=== PATIENT | female | born 1940 | race Caucasian/White ===

== ENCOUNTER 2017-02-06 20:24 | Inpatient (IN) ==
[2017-02-06 21:13] LABS: URINE SOURCE VOIDED
--- NOTE | 2017-02-06 21:18 | Diag Imaging Result Doc PS360 ---
EXAM: HIP 1 VIEW RIGHT HISTORY: fall TECHNIQUE: COMPARISON: None. FINDINGS: The femoral head is not dislocated. There is shortening to the femoral neck. On this one view, I am unable to tell if this is an old healed injury or if this is an acute fracture. No other fracture. IMPRESSION: Shortening of the femoral neck may represent an acute fracture. Electronically signed by Chapin Moncada 02/06/2017 9:15 PM
[2017-02-06] MEDS ORDERED: MORPHINE IV ONE (21:21)
[2017-02-06] MEDS ORDERED: ZOFRAN IV ONE (21:21)
[2017-02-06 21:26] LABS: MANUAL DIFF NEEDED? NO
[2017-02-06 21:28] LABS: BILIRUBIN URINE NEGATIVE (NEGATIVE); BLOOD URINE TRACE (NEGATIVE); COLOR YELLOW; GLUCOSE URINE NEGATIVE (NEGATIVE); LEUKOCYTES URINE MODERATE (NEGATIVE); NITRITE URINE NEGATIVE (NEGATIVE); PROTEIN URINE TRACE mg/dL (NEGATIVE); SP GRAVITY URINE 1.007; TURBIDITY URINE HAZY (CLEAR); UROBILINOGEN URINE NORMAL (NORMAL)
[2017-02-06 21:30] LABS: URINE MICRO REVIEW NEEDED? YES
[2017-02-06 21:32] LABS: BASO% 0.2 % (0.0-0.8); EOS# 0.06 X1000 (0.0-0.7); EOS% 0.7 % (0.0-10.0); HEMATOCRIT 40.9 % (37.0-47.0); HEMOGLOBIN 13.6 g/dL (12.0-16.0); IMM GRAN# 0.06 X1000 (0.0-0.04); IMM GRAN% 0.7 % (0.0-0.5); LYMPH# 1.28 X1000 (1.2-3.4); MCHC 33.3 g/dL (33-37); MCV 90.3 FL (81-99); MONO# 0.65 X1000 (0.11-0.59); MONO% 7.1 % (1.7-9.3); MPV 11.6 FL (7.4-10.4); NEUT% 77.3 % (42.2-75.2); PLT 180 X1000 (130-400); RBC 4.53 XMIL (4.2-5.4)
[2017-02-06 21:33] LABS: UR EPITHELIAL CELLS <10 /HPF (<10); URINE BACTERIA 1+ /HPF; URINE RBC TNTC /HPF (<10); URINE WBC <10 /HPF (<10)
[2017-02-06 22:08] LABS: AGAP 11; ALKALINE PHOSPHATASE 64 U/L (32-104); BUN 17 mg/dL (8-22); CALCIUM 9.4 mg/dL (8.8-10.2); CHLORIDE 102 mmol/L (98-107); COSMO 285; GOT 22 U/L (10-30); GPT 16 U/L (10-36); POTASSIUM 3.9 mmol/L (3.5-5.1); SODIUM 141 mmol/L (136-145); TCO2 28 mmol/L (25-35); TOTAL BILIRUBIN 0.28 mg/dL (0.20-1.00); TOTAL PROTEIN 8.2 g/dL (6.3-8.3)
[2017-02-06] MEDS ORDERED: CATAPRES PO ONE (23:12)
[2017-02-06] MEDS ORDERED: CATAPRES ONE (23:16)
--- NOTE | 2017-02-07 00:11 | PROVIDER DOCUMENTATION ---
This chart was entered by Roxanna Espinoza Scribe, acting as scribe for Jaskaran Goldberg MD. HPI-Musculoskeletal Pain/Inj - GENERAL Chief Complaint: Fall Stated Complaint: fall/rt femur pain Time Seen by Provider: 02/06/17 22:59 Source: patient - HX OF PRESENT ILLNESS-MUSKULOSKELTAL Nature of Presenting Problem: 76 Y/O F presents to ED with Extremity Injury. Pt states that she fell and now has pain in her right leg. Pt has noted shorter leg on rt side, c/o of knee pain. Hx of 2 Heart Attacks and Hypertension. Daughter states pt was diagnosed with Alzheimer's. Quality of Pain: reports: aching Severity in ED: severe Onset/Duration: this evening Timing: still present Any recent injury?: No Locality of Occurance: Home Similar Symptoms Previously?: No - FALL INJURY Location of Pain/Injury: reports: pelvis Pain Radiation: reports: no radiation Reason for Fall: reports: tripped Symptoms prior to fall:: reports: none Loss of Consciousness: no loss of consciousness Injury Associated Symptoms: reports: joint pain, trouble walking - HIP/PELVIS PAIN/INJURY Hip Pain Location: reports: hip (R) Pain Radiation: reports: no radiation Context / Method of Injury: reports: fall Associated Symptoms: reports: denies symptoms Review of Systems - Adult - REVIEW OF SYSTEMS - ADULT Constitutional: denies: chills, fever Eyes: reports: no symptoms reported Ears, Nose, Mouth & Throat: reports: no symptoms reported Cardiovascular: denies: chest pain Respiratory: denies: cough, shortness of breath Gastrointestinal: reports: no symptoms reported Genitourinary: reports: no symptoms reported Musculoskeletal: reports: joint pain. denies: bone pain, back pain, neck pain Integumentary: reports: no symptoms reported Neurological: reports: no symptoms reported Psychiatric: reports: no symptoms reported Endocrine: reports: no symptoms reported Hematologic/Lymphatic: reports: no symptoms reported Allergic/Immunologic: reports: no symptoms reported All Other Systems: Reviewed and Negative Past History - Adult - PAST MEDICAL HISTORY-ADULT Review of Records: reports: Old Records Reviewed, Nursing Assessment Review, Medications Reviewed, Social history reviewed & non-contributory. Physical Exam-Injury Related - Physical Exam-Injury Related General Appearance: alert, mild distress Eyes: PERRL/EOMI, pink conjunctivae Head, Ears, Nose, Mouth & Throat: normocephalic/atraumatic, moist mucous membranes, normal ENT inspection, TMs normal, pharynx normal Respiratory: chest non-tender, lungs clear, normal breath sounds Cardiovascular: normal peripheral pulses, regular rate, rhythm Abdominal Exam: normal bowel sounds, non tender, soft Extremity: tenderness, other (noted shortening of right leg) Integumentary: normal color, warm/dry - Glascow Coma Score Best Eye Response ([place]): (4) open spontaneously Best Verbal Response ([place]): (5) oriented Best Motor Response ([place]): (6) obeys commands Nomi Total: 15 Progress - PLAN OF CARE/RESULTS Progress/Plan/Lab Results: Vital Signs - 8 hr 02/06/17 20:55 02/06/17 23:31 Pulse Rate 99 H 76 Respiratory Rate 20 20 Blood Pressure 238/145 232/112 O2 Sat by Pulse Oximetry 90 L 95 Laboratory Results - last 24 hr 02/06/17 02/06/17 02/06/17 21:01 21:15 21:15 WBC 9.14 RBC 4.53 Hgb 13.6 Hct 40.9 MCV 90.3 MCH 30.0 MCHC 33.3 RDW Std Deviation 13.1 Plt Count 180 MPV 11.6 H Immature Gran % (Auto) 0.7 H Neut % (Auto) 77.3 H Lymph % (Auto) 14.0 L [place] % (Auto) 7.1 Eos % (Auto) 0.7 Baso % (Auto) 0.2 Immature Gran # (Auto) 0.06 H Neut # (Auto) 7.07 H Lymph # (Auto) 1.28 [place] # (Auto) 0.65 H Eos # (Auto) 0.06 Baso # (Auto) 0.02 Sodium 141 Potassium 3.9 Chloride 102 Carbon Dioxide 28 Anion Gap 11 BUN 17 Creatinine 0.8 Estimated GFR/1.73 m2 > 60 BUN/Creatinine Ratio 21 Glucose 137 H Calculated Osmolality 285 Calcium 9.4 Total Bilirubin 0.28 AST 22 ALT 16 Alkaline Phosphatase 64 Total Protein 8.2 Albumin 4.0 Globulin 4.2 Albumin/Globulin Ratio 1.0 Urine Source VOIDED Urine Color YELLOW Urine Turbidity HAZY Urine pH 7.0 Ur Specific [place] 1.007 Urine Protein TRACE A Ur Glucose (Stick) NEGATIVE Ur Ketones (Stick) NEGATIVE Urine Blood TRACE A Urine Nitrite NEGATIVE Urine Bilirubin NEGATIVE Urobilinogen Dipstick NORMAL Urine Leukocytes MODERATE A Urine WBC (Auto) <10 Urine RBC (Auto) TNTC A U Epithel Cells (Auto) <10 Urine Bacteria (Auto) 1+ Urine Crystals Not Reportable Small Round Cells Not Reportable Urine Casts Not Reportable Urine Yeast-like Cells NONE SEEN Blood Type Antibody Screen 02/06/17 21:15 WBC RBC Hgb Hct MCV MCH MCHC RDW Std Deviation Plt Count MPV Immature Gran % (Auto) Neut % (Auto) Lymph % (Auto) [place] % (Auto) Eos % (Auto) Baso % (Auto) Immature Gran # (Auto) Neut # (Auto) Lymph # (Auto) [place] # (Auto) Eos # (Auto) Baso # (Auto) Sodium Potassium Chloride Carbon Dioxide Anion Gap BUN Creatinine Estimated GFR/1.73 m2 BUN/Creatinine Ratio Glucose Calculated Osmolality Calcium Total Bilirubin AST ALT Alkaline Phosphatase Total Protein Albumin Globulin Albumin/Globulin Ratio Urine Source Urine Color Urine Turbidity Urine pH Ur Specific [place] Urine Protein Ur Glucose (Stick) Ur Ketones (Stick) Urine Blood Urine Nitrite Urine Bilirubin Urobilinogen Dipstick Urine Leukocytes Urine WBC (Auto) Urine RBC (Auto) U Epithel Cells (Auto) Urine Bacteria (Auto) Urine Crystals Small Round Cells Urine Casts Urine Yeast-like Cells Blood Type O POSITIVE Antibody Screen NEGATIVE Orders Category Date Time Status HEAD/C-SPINE W/O CONTRAST [CT] Stat Exams 02/06/17 23:01 Taken HIP 1 VIEW RIGHT [RAD] Stat Exams 02/06/17 21:01 Completed PELVIS W/O CONTRAST [CT] Stat Exams 02/06/17 22:28 Taken CBC WITH ELECTRONIC DIFF [HEME] Stat Lab 02/06/17 21:15 Completed COMPREHENSIVE METABOLIC PANEL [CHEM] Stat Lab 02/06/17 21:15 Completed TYPE & SCREEN [BBK] Stat Lab 02/06/17 21:15 Completed UA [URINALYSIS] [URINALYSIS] Stat Lab 02/06/17 21:01 Completed URINE MANUAL MICROSCOPIC [URINALYSIS] Stat Lab 02/06/17 21:01 Completed Clonidine [Catapres] Med 02/06/17 23:16 Discontinued 0.2 mg .ROUTE .STK-MED ONE Clonidine [Catapres] Med 02/06/17 23:12 Discontinued 0.2 mg PO NOW ONE Clonidine [Catapres] Med 02/07/17 11:15 Discontinued 0.2 mg PO NOW ONE Morphine Med 02/06/17 21:21 Discontinued 4 mg IV NOW ONE Ondansetron [Zofran] Med 02/06/17 21:21 Discontinued 4 mg IV NOW ONE Result Diagrams: 02/06/17 21:15 02/06/17 21:15 - XRAY 1 XRAY: Right XRAY Study: Hip Impression: Abnormal XRAY Interpretation: Shortening of the femoral neck may represent an acute fx ( [place]) - CT/MRI 1 CT Study: Pelvis Impression: Abnormal CT Results: Rt femoral neck fx 2 CT Study: Cervical Spine, Head Impression: Normal CT Results: NAD - CONSULTS/PCP/HOSPITALIST Notification #1 *Consult/PCP/Hospitalist*: Time Discussed: 00:04 Reason/Comments: Admit Consult Disposition: Admit (Admit Accepted) Departure - Departure Date of Disposition Decision: 02/06/17 Time of Disposition Decision: 23:48 DIAGNOSIS: Hip fracture, right Qualifiers: Encounter type: initial encounter Fracture type: closed Qualified Code(s): S72.001A - Fracture of unspecified part of neck of right femur, initial encounter for closed fracture Disposition: ADMITTED INPATIENT 09 Certified Medical Emergency: Emergent Condition: Good Referrals and Follow-Ups: Arely Casillas [Primary Care Provider] - - Critical Care Note This patient required my direct & personal management of CC.: No This chart was documented by the indicated scribe, (Roxanna Espinoza Scribe) and accurately reflects the services I performed and decisions made by me, Jaskaran Goldberg MD, as attested by the provider's signature.
[2017-02-07] MEDS ORDERED: APRESOLINE IV PRN (00:52)
[2017-02-07] MEDS ORDERED: ZOFRAN IV PRN (01:37)
[2017-02-07] MEDS ORDERED: NITROGLYCERIN SL PRN (01:37)
[2017-02-07] MEDS ORDERED: NS 1,000 ML ONE (01:44)
[2017-02-07] MEDS: DILAUDID IV PRN ×3 (01:46→20:22)
[2017-02-07] MEDS: NS 1,000 ML IV SCH ×2 (02:09→15:11)
[2017-02-07 02:39] LABS: URINE CULTURE NEEDED? NO; URINE MICRO REVIEW NEEDED? NO; URINE SOURCE CATH
[2017-02-07 02:44] LABS: BILIRUBIN URINE NEGATIVE (NEGATIVE); BLOOD URINE TRACE (NEGATIVE); COLOR YELLOW; GLUCOSE URINE NEGATIVE (NEGATIVE); LEUKOCYTES URINE NEGATIVE (NEGATIVE); NITRITE URINE NEGATIVE (NEGATIVE); PH URINE 6.5; PROTEIN URINE TRACE mg/dL (NEGATIVE); TURBIDITY URINE CLEAR (CLEAR); UR EPITHELIAL CELLS <10 /HPF (<10); URINE BACTERIA NEGATIVE /HPF; URINE RBC <10 /HPF (<10); URINE WBC <10 /HPF (<10); UROBILINOGEN URINE NORMAL (NORMAL)
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
[2017-02-07] MEDS: LABETALOL IV PRN ×2 (05:09→23:33)
--- NOTE | 2017-02-07 07:37 | Diag Imaging Result Doc PS360 ---
EXAM: HEAD/C-SPINE W/O CONTRAST HISTORY: fall TECHNIQUE: COMPARISON: None. FINDINGS: Head: No parenchymal hemorrhage. No epidural or subdural hematoma. No subarachnoid hemorrhage. No skull fracture. There are chronic microvascular ischemic changes in addition to atrophy. No sinus opacification. Cervical spine: There is degenerative bone spurring throughout the cervical spine. Good alignment. No precervical soft tissue swelling. No subluxation. No fracture. IMPRESSION: No injury to the head or cervical spine. A preliminary report was given at 11:23 PM Electronically signed by Chapin Moncada 02/07/2017 7:35 AM
--- NOTE | 2017-02-07 07:47 | Diag Imaging Result Doc PS360 ---
EXAM: PELVIS W/O CONTRAST - 02/06/2017 HISTORY: Rt hip fx TECHNIQUE: Axial, coronal, and sagittal images. Dose reduction protocol. COMPARISON: None. FINDINGS: There is a fracture of the right femoral neck with anterior displacement of the distal fragment and mild impaction. There are small comminuted fragments present. There is no other fracture or dislocation identified. There are atherosclerotic calcifications noted. IMPRESSION: Fracture of right femoral neck. The ultrasonic welding machine operator radiologist provided primary results at 11:27 PM on 02/06/2017. Electronically signed by Gonzalo Gay 02/07/2017 7:45 AM
[2017-02-07] MEDS: NORCO-10 PO PRN ×2 (07:52→16:08)
[2017-02-07] MEDS: PRILOSEC PO SCH (07:52)
[2017-02-07] MEDS: ARICEPT PO SCH (09:01)
[2017-02-07] MEDS: COREG PO SCH ×2 (09:01→20:23)
[2017-02-07] MEDS: VITAMIN B-12 PO SCH (09:01)
[2017-02-07] MEDS: VITAMIN D PO SCH (09:01)
[2017-02-07] MEDS: COZAAR PO SCH (09:01)
--- NOTE | 2017-02-07 09:37 | CONSULTATION ---
DATE OF CONSULTATION: 02/07/2017 FAMILY PHYSICIAN: Arely Casillas MD CHIEF COMPLAINT: Right hip pain. HISTORY OF PRESENT ILLNESS: Ms. Caceres is a 76-year-old white female, who was brought to the emergency department today because she apparently tripped at her home and she landed on her right hip. She was unable to bear weight after that injury. Radiographic findings in the emergency room revealed a right intertrochanteric hip fracture. She denies any loss of consciousness and we were consulted for further evaluation. PAST MEDICAL HISTORY: 1. Hypertension. 2. Coronary artery disease with a stent placed. 3. Patient said she had a fracture in her right leg many years ago, but she was not able to remember what the surgery was for. 4. History of blood clots. ALLERGIES: No known drug allergies. SOCIAL HISTORY: Patient lives with her and daughter. She denies drinking alcohol, smoking tobacco, or using illicit drugs. Before the injury she was ambulating well at home independently. REVIEW OF SYSTEMS: Ten point review of systems was performed and was negative, other than what was stated in HPI above. PHYSICAL EXAMINATION: General Appearance: This is a chronically ill-looking and frail 76-year- old white female, who is lying in bed. She is a poor historian and unable to fully articulate answers. HEENT: Head is normocephalic and atraumatic. Neck: Supple. Cardiovascular: S1, S2 heard. Regular rate and rhythm. Respiratory: Clear to auscultation bilaterally. Abdomen: Soft, nontender to palpation. Bowel sounds are present. Extremities: There is shortening of her right lower extremity. It appears to be externally rotated. Neurovascular status is intact with good peripheral pulses. There is no gross edema or ecchymosis noted. Other: She has a Weems placed. IMPRESSION: Right impacted femoral neck fracture. PLAN: Closed reduction, percutaneous pinning of right femoral neck fracture. The risks and benefits of surgery were explained to the patient including risk of anesthesia, , bleeding, infection, damage to tendons, ligaments, nerves, blood vessel, possibility of bleeding, blood clots, and other imponderables were discussed with the patient and she wishes to proceed with operative management at this time. Dictated by ANTONIETA Armenta for Jason Nova MD cc: ANTONIETA Armenta MD [facility]
[2017-02-07] MEDS ORDERED: CATAPRES PO ONE (11:15)
--- NOTE | 2017-02-07 14:24 | PROGRESS NOTE ---
DATE: 02/07/2017 SUBJECTIVE: The patient was seen and examined. Admitted for right hip fracture. The patient complained of having pain. OBJECTIVE: Vital Signs: Blood pressure 150/53, pulse of 80, respiration 18, temperature 97.8 degrees, saturation of 98% on 2 L of nasal cannula. General appearance: Well- nourished, well- nourished white female in [id number] distress due to pain. HEENT: Anicteric. Clear conjunctivae. Neck supple. No JVD. No bruit. Cardiovascular: S1, S2. Normal rate and rhythm. No murmur, rubs, rubs, or gallops. Pulmonary: Clear to auscultation bilaterally. GI: Soft, nontender, nondistended. Normoactive bowel sounds. Musculoskeletal: The patient has right hip pain. No clubbing, cyanosis, or edema. LABORATORY: White count 9.14, hemoglobin 13.6, hematocrit 180. Chemistry: Sodium 141, potassium 3.9, chloride 102, bicarb 28. BUN 17, creatinine 0.8, glucose of 137. ASSESSMENT AND PLAN: This is a 76-year-old who sustained a mechanical fall fracturing her right hip. 1. Right hip fracture. Orthopedics was consulted. Dr. Nova was consulted and will plan to do surgery later today or tomorrow. We will continue pain control and supportive care. Start anticoagulation once cleared by orthopedics. 2. Hypertension. We will continue Cozaar for now. We will add hydralazine p.r.n. for blood pressure while she is having pain off and on. We will readjust it as needed. On Coreg. 3. Gastroesophageal reflux disease. We will continue proton pump inhibitor. 4. Deep venous thrombosis prophylaxis. We will wait for surgery to complete. [facility]
[2017-02-07] MEDS: CATAPRES PO SCH (20:22)
[2017-02-08] MEDS: NS 1,000 ML IV SCH ×3 (01:59→16:13)
[2017-02-08] MEDS: DILAUDID IV PRN ×2 (04:10→08:51)
[2017-02-08 05:41] LABS: MANUAL DIFF NEEDED? NO
[2017-02-08 05:50] LABS: BASO% 0.2 % (0.0-0.8); EOS# 0.26 X1000 (0.0-0.7); EOS% 2.8 % (0.0-10.0); HEMATOCRIT 37.8 % (37.0-47.0); HEMOGLOBIN 12.4 g/dL (12.0-16.0); IMM GRAN# 0.02 X1000 (0.0-0.04); IMM GRAN% 0.2 % (0.0-0.5); LYMPH# 1.59 X1000 (1.2-3.4); LYMPH% 17.2 % (20.5-51.1); MCH 30.2 PG (27-31); MCHC 32.8 g/dL (33-37); MCV 92.2 FL (81-99); MONO# 1.01 X1000 (0.11-0.59); MONO% 10.9 % (1.7-9.3); MPV 12.1 FL (7.4-10.4); NEUT% 68.7 % (42.2-75.2); PLT 142 X1000 (130-400)
[2017-02-08 06:13] LABS: AGAP 9; BUN 13 mg/dL (8-22); CALCIUM 8.6 mg/dL (8.8-10.2); CHLORIDE 103 mmol/L (98-107); COSMO 282; POTASSIUM 3.9 mmol/L (3.5-5.1); SODIUM 141 mmol/L (136-145); TCO2 29 mmol/L (25-35)
[2017-02-08] MEDS: PRILOSEC PO SCH (07:54)
[2017-02-08] MEDS: VITAMIN D PO SCH (08:52)
[2017-02-08] MEDS: COREG PO SCH ×2 (08:52→20:46)
[2017-02-08] MEDS: COZAAR PO SCH (08:52)
[2017-02-08] MEDS: VITAMIN B-12 PO SCH (08:52)
[2017-02-08] MEDS: ARICEPT PO SCH (08:53)
[2017-02-08] MEDS ORDERED: KEFZOL 1 GM/D5W 1 GM/50 ML IVPB ONE (11:42)
--- NOTE | 2017-02-08 12:00 | PROGRESS NOTE ---
DATE: 02/08/2017 SUBJECTIVE: The patient is still having pain and has required pain medication overnight. No fever, no chills. OBJECTIVE: Vital signs: Blood pressure is 182/83, pulse of 72, respirations 20, temperature 97.7 degrees, saturation of 98% on room air. General Appearance: White female in moderate distress due to pain. HEENT: Anicteric. Clear conjunctivae. Neck: Supple. No JVD. No bruit. Cardiovascular: S1, S2. Normal rate and rhythm. No murmur, rubs, or gallops. Pulmonary: Clear to auscultation bilaterally. GI: Soft, nontender, nondistended. Normoactive bowel sounds. Musculoskeletal: No clubbing, cyanosis, or edema. LABORATORY: White count 9.25, hemoglobin 12.4, hematocrit of 37.8, platelets of 142,000. Chemistry: Sodium is 141, potassium 3.9, chloride 103, bicarbonate 29, BUN 13, creatinine 0.7, glucose 112. ASSESSMENT/PLAN: This is a 76-year-old who sustained a mechanical fall at home fracturing her right hip. 1. Right hip fracture. Orthopedics is planning to do surgery today. We will continue with conservative management get her pain under control. 2. Hypertension. We will continue Coreg, p.r.n. hydralazine and losartan. 3. Gastroesophageal reflux disease. Continue Prilosec. 4. Dementia. Continue Aricept. CODE STATUS: Patient is a full code. Her is her surrogate decision maker.
--- NOTE | 2017-02-08 13:01 | OPERATIVE NOTE ---
PROCEDURE DATE: 02/08/2017 PREOPERATIVE DIAGNOSIS: Impacted right femoral neck fracture. POSTOPERATIVE DIAGNOSIS: Impacted right femoral neck fracture. PROCEDURE: Closed reduction, percutaneous pinning, right femoral neck fracture. SURGEON: Joana Nova MD. BALL FRINGE MACHINE OPERATOR: Rachna Angel. ANESTHESIA: General. COMPLICATION: None. PROCEDURE IN DETAIL: This is a 76-year-old female with impacted right femoral neck fracture presents for surgical fixation. Risks, benefits, and no guarantees were discussed, and she is willing to proceed. She was taken to the operating room and satisfactory anesthesia obtained. The right hip was prepped and draped and placed in the fracture table. Gentle traction and internal rotation were utilized to reduce the hip near anatomically. A time-out was taken to confirm operative site, procedure, and patient. Through a 1 inch incision along the lateral aspect of the hip at the level of lesser trochanter, three guide pins were placed in a triangular fashion across the fracture and into the central aspect of the femoral head. Care was taken to avoid any articular penetration. These were then replaced with three 90 length partially threaded cannulated screws with secure fixation. The guidewires were removed. The C-arm was used to verify accurate fracture reduction and hardware placement. Good stability of the fracture was noted under real-time fluoro. The wound was irrigated and closed in layers with 2-0 Vicryl, and skin zahira. Sterile dressings completed the closure. The patient was recovered from anesthesia and transferred to the recovery room in stable condition. No intraoperative complications were noted. Instrument count and sponge count was correct at time of closure. cc: Jason Nova MD
[2017-02-08] MEDS ORDERED: MORPHINE ONE ×2 (13:09→13:23)
[2017-02-08] MEDS ORDERED: OXY IR PO PRN (13:12)
[2017-02-08] MEDS ORDERED: HALDOL IV PRN (13:12)
[2017-02-08] MEDS ORDERED: ZOFRAN IV PRN (13:12)
[2017-02-08] MEDS ORDERED: MORPHINE IV PRN (13:12)
[2017-02-08] MEDS ORDERED: MILK OF MAGNESIA PO PRN (13:12)
[2017-02-08] MEDS ORDERED: APRESOLINE ONE (13:25)
[2017-02-08] MEDS ORDERED: OFIRMEV 1000 MG/ISOTONIC SOLN 1,000 MG/100 ML BOTTLE ONE (13:47)
[2017-02-08] MEDS: TYLENOL PO SCH (16:14)
[2017-02-08] MEDS ORDERED: XYLOCAINE-MPF 2% ONE (16:47)
[2017-02-08] MEDS: CATAPRES PO SCH (20:46)
[2017-02-08] MEDS: KEFZOL 1 GM/D5W 1 GM/50 ML IVPB IV SCH (20:46)
[2017-02-08] MEDS: PERIDEX MT SCH (20:46)
[2017-02-08] MEDS: COLACE PO SCH (20:46)
[2017-02-09] MEDS: TYLENOL PO SCH ×4 (00:53→23:39)
[2017-02-09] MEDS: NS 1,000 ML IV SCH ×3 (03:50→16:55)
[2017-02-09] MEDS: KEFZOL 1 GM/D5W 1 GM/50 ML IVPB IV SCH ×3 (03:51→20:26)
[2017-02-09] MEDS: PRILOSEC PO SCH (05:59)
[2017-02-09 06:33] LABS: MANUAL DIFF NEEDED? NO
[2017-02-09 06:38] LABS: BASO% 0.3 % (0.0-0.8); EOS# 0.32 X1000 (0.0-0.7); EOS% 3.4 % (0.0-10.0); HEMATOCRIT 36.9 % (37.0-47.0); HEMOGLOBIN 11.9 g/dL (12.0-16.0); LYMPH# 1.25 X1000 (1.2-3.4); LYMPH% 13.3 % (20.5-51.1); MCH 29.5 PG (27-31); MCHC 32.2 g/dL (33-37); MCV 91.6 FL (81-99); MONO# 1.11 X1000 (0.11-0.59); MONO% 11.8 % (1.7-9.3); MPV 12.4 FL (7.4-10.4); NEUT% 71.2 % (42.2-75.2); PLT 131 X1000 (130-400); RBC 4.03 XMIL (4.2-5.4)
[2017-02-09 07:05] LABS: AGAP 10; BUN 12 mg/dL (8-22); CALCIUM 8.4 mg/dL (8.8-10.2); CHLORIDE 103 mmol/L (98-107); COSMO 280; POTASSIUM 3.6 mmol/L (3.5-5.1); SODIUM 140 mmol/L (136-145); TCO2 27 mmol/L (25-35)
--- NOTE | 2017-02-09 10:10 | PROGRESS NOTE ---
DATE: 02/09/2017 SUBJECTIVE: Ms. Caceres is lying in bed this morning. Complained of some right hip pain. OBJECTIVE: Right lower extremity exam: Dressing is clean, dry, and intact. She is able to dorsiflex and plantar flex her toes well. She has good sensation to light touch to the toes. ASSESSMENT: Status post right closed reduction, percutaneous pinning, femoral neck fracture. PLAN: Ms. Caceres is going to be partial weightbearing right lower extremity. She is going to start working with physical therapy, getting up out of bed. We will continue to follow her. She more than likely will need to go to rehab upon discharge from the hospital. cc: Leno Herzog MD
[2017-02-09] MEDS: VITAMIN B-12 PO SCH (11:56)
[2017-02-09] MEDS: VITAMIN D PO SCH (11:56)
[2017-02-09] MEDS: COREG PO SCH ×2 (11:56→20:25)
[2017-02-09] MEDS: COZAAR PO SCH (11:56)
[2017-02-09] MEDS: ARICEPT PO SCH (11:56)
[2017-02-09] MEDS: PERIDEX MT SCH ×2 (11:57→20:25)
[2017-02-09] MEDS ORDERED: NORVASC PO ONE (12:15)
[2017-02-09] MEDS: FERROUS SULFATE PO SCH (13:34)
--- NOTE | 2017-02-09 13:59 | PROGRESS NOTE ---
DATE: 02/09/2017 SUBJECTIVE: The patient is doing well. No fever. No chills. No nausea, vomiting, or diarrhea. She had her right hip repaired yesterday. OBJECTIVE: Vital Signs: Blood pressure 180/79, pulse of 56, respiration 18, temperature 98.4 degrees, saturation of 95% on 2 L nasal cannula. General Appearance: Well-developed, well- nourished, white female in no acute distress. HEENT: Anicteric sclerae. Clear conjunctivae. Neck supple. No JVD. No bruit. Cardiovascular: S1, S2. Normal rate and rhythm. No murmur, rubs, or gallops. Pulmonary: Clear to auscultation bilaterally. GI: Soft, nontender, nondistended. Normoactive bowel sounds. Musculoskeletal: No clubbing, cyanosis, or edema. Right hip pain. Dressing in place. Clean dry and intact. LABORATORY: White count of 9. 1, hemoglobin 11.9, hematocrit 36.9, platelets of 131,000. Chemistry: Sodium 140, potassium 3.6, chloride 103, bicarb 27. BUN 12, creatinine 0.5, glucose 112. ASSESSMENT AND PLAN: This is a 76-year-old white female admitted to the hospital for right hip fracture due to a mechanical fall. 1. Right hip fracture status post open reduction internal fixation on 02/08/2017. The patient tolerated the procedure well. Her pain is adequately controlled. 2. Hypertension. Blood pressure elevated. We will keep the Clonidine as is and we will add Norvasc and keep the patient on Cozaar to get her blood pressure under control. Her heart rate is too slow for any additional beta pete or Clonidine. 3. Dementia. Will continue Aricept. 4. We will decrease the IV fluids now that the patient is able to eat. 5. We will continue physical therapy. Sanitation Director was consulted for rehab
[2017-02-09] MEDS: CATAPRES PO SCH (20:25)
[2017-02-09] MEDS: COLACE PO SCH (20:25)
[2017-02-10] MEDS: KEFZOL 1 GM/D5W 1 GM/50 ML IVPB IV SCH ×2 (03:44→13:52)
[2017-02-10] MEDS: NS 1,000 ML IV SCH ×3 (03:44→16:33)
[2017-02-10 06:10] LABS: MANUAL DIFF NEEDED? NO
[2017-02-10] MEDS: PRILOSEC PO SCH (06:21)
[2017-02-10 06:25] LABS: BASO% 0.3 % (0.0-0.8); EOS# 0.27 X1000 (0.0-0.7); EOS% 2.7 % (0.0-10.0); HEMATOCRIT 36.4 % (37.0-47.0); HEMOGLOBIN 12.1 g/dL (12.0-16.0); IMM GRAN# 0.03 X1000 (0.0-0.04); IMM GRAN% 0.3 % (0.0-0.5); LYMPH# 1.78 X1000 (1.2-3.4); LYMPH% 17.8 % (20.5-51.1); MCH 29.8 PG (27-31); MCHC 33.2 g/dL (33-37); MCV 89.7 FL (81-99); MONO# 1.28 X1000 (0.11-0.59); MONO% 12.8 % (1.7-9.3); MPV 12.1 FL (7.4-10.4); NEUT% 66.1 % (42.2-75.2); PLT 143 X1000 (130-400); RBC 4.06 XMIL (4.2-5.4)
[2017-02-10] MEDS: LOVENOX SUBQ SCH (06:51)
[2017-02-10 07:12] LABS: AGAP 11; BUN 12 mg/dL (8-22); CALCIUM 8.4 mg/dL (8.8-10.2); CHLORIDE 104 mmol/L (98-107); COSMO 282; POTASSIUM 3.2 mmol/L (3.5-5.1); SODIUM 141 mmol/L (136-145); TCO2 26 mmol/L (25-35)
[2017-02-10] MEDS: PERIDEX MT SCH (08:39)
[2017-02-10] MEDS: VITAMIN B-12 PO SCH (08:39)
[2017-02-10] MEDS: CATAPRES PO SCH ×3 (08:40→18:41)
[2017-02-10] MEDS: COZAAR PO SCH (08:40)
[2017-02-10] MEDS: NORVASC PO SCH (08:40)
[2017-02-10] MEDS: TYLENOL PO SCH ×3 (08:40→18:42)
[2017-02-10] MEDS: COREG PO SCH ×2 (08:41→21:36)
[2017-02-10] MEDS: FERROUS SULFATE PO SCH (08:41)
[2017-02-10] MEDS: ARICEPT PO SCH (08:41)
[2017-02-10] MEDS: VITAMIN D PO SCH (08:41)
[2017-02-10] MEDS ORDERED: KLOR-CON PO ONE (09:24)
--- NOTE | 2017-02-10 10:37 | PROGRESS NOTE ---
DATE: 02/10/2017 SUBJECTIVE: The patient is feeling well. Sitting up in the chair eating her breakfast. No fever. No chills. No nausea, vomiting, or diarrhea. No cough. No acute event reported by the overnight staff. OBJECTIVE: Vital Signs: Blood pressure this morning . The patient was treated with p.r.n. medications. Heart rate 88, temperature 98.3, saturation of 92% on room air. General Appearance: Well-developed, well-nourished, white female in no acute distress. Moderately demented. HEENT: ENT anicteric. Clear conjunctivae. Poor dentition. Neck: Supple. No JVD. No bruit. Cardiovascular: S1, S2. Normal rate and rhythm. No murmur, rubs, or gallops. Pulmonary: Clear to auscultation bilaterally. GI: Soft, nontender, nondistended. Normoactive bowel sounds. Musculoskeletal: No clubbing, cyanosis, or edema. LABORATORY: White count 9.98, hemoglobin 12.2, hematocrit of 36.4, platelets of 143,000. Chemistry: Sodium 141, potassium 3.2, chloride 104, bicarb 26, BUN 12, creatinine 0.5, glucose 110. ASSESSMENT AND PLAN: This 76-year-old sustained a mechanical fall, fracturing her right hip. 1. Right hip fracture status post open reduction internal fixation on January. The patient tolerated the procedure well. Has been working with physical therapy. utility worker roller shop was consult for rehab. 2. Hypertension, uncontrolled. I have changed her Catapres to 3 times a day instead of at bedtime. I also increased her Norvasc to 10 mg. Will increase her Coreg to 6.25 b.i.d. The patient has hydralazine p.r.n. as well as on labetalol p.r.n. She is also on losartan. Will get her pain under control. 3. Hypokalemia. Will give her 60 mEq of KCl. 4. Dementia. Continue Aricept. 5. Deep vein thrombosis. The patient is on Lovenox. 6. Code status. The patient is a full code.
[2017-02-10] MEDS: COLACE PO SCH (21:36)
[2017-02-11] MEDS: TYLENOL PO SCH ×2 (05:31→09:28)
[2017-02-11] MEDS: PERIDEX MT SCH ×3 (05:35→20:43)
[2017-02-11] MEDS: PRILOSEC PO SCH ×2 (05:35→06:34)
[2017-02-11] MEDS: LOVENOX SUBQ SCH ×2 (05:37→06:33)
[2017-02-11] MEDS: NS 1,000 ML IV SCH ×2 (05:37→18:50)
[2017-02-11] MEDS: CATAPRES PO SCH ×2 (09:28→12:34)
[2017-02-11] MEDS: VITAMIN B-12 PO SCH (09:28)
[2017-02-11] MEDS: VITAMIN D PO SCH (09:29)
[2017-02-11] MEDS: COZAAR PO SCH (09:29)
[2017-02-11] MEDS: NORVASC PO SCH ×2 (09:29→20:43)
[2017-02-11] MEDS: FERROUS SULFATE PO SCH (09:29)
[2017-02-11] MEDS: COREG PO SCH ×2 (09:29→20:43)
[2017-02-11] MEDS: ARICEPT PO SCH (09:29)
[2017-02-11] MEDS ORDERED: KLOR-CON PO ONE (09:54)
--- NOTE | 2017-02-11 11:08 | PROGRESS NOTE ---
DATE: 02/11/2017 SUBJECTIVE: Patient reports feeling fine. Denies any pain. No fever or chills. OBJECTIVE: Vital Signs: Temperature 97.6 degrees, heart rate 82, respiratory rate 16, blood pressure 198/66, O2 saturation 97% on room air. General: This is a chronically ill-looking and frail 76-year-old female lying in bed, in no acute distress. HEENT: Head is normocephalic, atraumatic. Anicteric sclerae and pale conjunctivae. Mucous membranes moist. Neck: Supple. No JVD noted. No carotid bruits. No lymphadenopathy. No thyromegaly. Cardiovascular: S1, S2 heard. No murmurs, gallops, or rubs. Regular rate and rhythm. Respiratory: Clear bilaterally to auscultation. No work of breathing or using accessory muscles. Abdomen: Soft, nontender to palpation. Bowel sounds present. No organomegaly. Extremities: No clubbing, cyanosis, or edema. Peripheral pulses present in both legs. Neurological: Patient alert and oriented x3. Moves 4 extremities. LABORATORY DATA: White cell count 9.98, hemoglobin 12.1, hematocrit 36.4, platelets 143,000. BMP unremarkable except potassium 3.2. ASSESSMENT AND PLAN: 1. Right hip fracture status post open reduction and internal fixation. Patient is being following by who has recommended partial weightbearing. 2. Hypertension. Blood pressure is under control. Patient has received clonidine 3 times per day. Blood pressure is still high so we are going to add hydralazine 50 mg p.o. 3 times per day and will see how she does. 3. Hypokalemia will receive 40 mg of potassium. 4. Dementia. We will continue with Aricept. Patient is stable. 5. Deep venous thrombosis prophylaxis. Patient on Lovenox. 6. Code status. Full code. cc: Robb Melgoza MD
[2017-02-11] MEDS: COLACE PO SCH (20:43)
[2017-02-11] MEDS: NORCO-10 PO PRN (20:45)
[2017-02-11] MEDS: APRESOLINE PO SCH (20:49)
[2017-02-12] MEDS: TYLENOL PO SCH ×3 (00:01→15:50)
[2017-02-12] MEDS: NS 1,000 ML IV SCH ×4 (05:23→17:39)
[2017-02-12] MEDS: APRESOLINE PO SCH ×3 (05:55→21:36)
[2017-02-12] MEDS: PRILOSEC PO SCH ×2 (05:55→21:41)
[2017-02-12] MEDS: LOVENOX SUBQ SCH (05:55)
[2017-02-12] MEDS: ARICEPT PO SCH (08:22)
[2017-02-12] MEDS: PERIDEX MT SCH ×2 (08:22→21:36)
[2017-02-12] MEDS: COREG PO SCH ×2 (08:22→21:36)
[2017-02-12] MEDS: VITAMIN B-12 PO SCH (08:22)
[2017-02-12] MEDS: COZAAR PO SCH (08:22)
[2017-02-12] MEDS: CATAPRES PO SCH ×4 (08:22→17:21)
[2017-02-12] MEDS: FERROUS SULFATE PO SCH (08:22)
[2017-02-12] MEDS: NORVASC PO SCH ×2 (08:22→21:36)
[2017-02-12] MEDS: VITAMIN D PO SCH (08:22)
--- NOTE | 2017-02-12 12:20 | PROGRESS NOTE ---
DATE: 02/12/2017 SUBJECTIVE: Patient reports feeling fine, no pain. No fever or chills. No headaches. OBJECTIVE: Vital Signs: Temperature 98.1 degrees, heart rate 68, respiratory rate 14, blood pressure 189/59. O2 saturation 96% on 2 L nasal cannula. General: Chronically ill-looking, frail, 76-year-old female lying in bed, in no acute distress. HEENT: Normocephalic, atraumatic. Anicteric sclerae and pale conjunctivae. Mucous membranes moist. Neck: Supple. No JVD noted. No carotid bruits. No lymphadenopathy. No thyromegaly. Cardiovascular: S1, S2 heard. No murmurs, gallops, or rubs. Regular rate and rhythm. Respiratory: Clear bilaterally to auscultation. No work of breathing or using accessory muscles. Abdomen: Soft, nontender to palpation. Bowel sounds present. No organomegaly. Extremities: No clubbing, cyanosis, or edema. Peripheral pulses present in both legs. Neurological: Patient is alert and oriented x3. Able to move 4 extremities. LABORATORY DATA: Reviewed. ASSESSMENT AND PLAN: 1. Right hip fracture status post open reduction and internal fixation. Patient being followed by orthopedic surgeon. They have recommended partial weightbearing. We will sent to rehab facility when Orthopedics has cleared up this patient. 2. Hypertension. Blood pressure is still high, so we are going to increase the dose of clonidine, and we will go from there. 3. Hypokalemia. There are no labs from today. We are going to check it now and see if the potassium is normal or still low. 4. Dementia. We will continue with Aricept. Patient is definitely stable. 5. Deep vein thrombosis prophylaxis, on Lovenox. 6. Code status. Full code. cc: Robb Melgoza MD
--- NOTE | 2017-02-12 15:16 | PROGRESS NOTE ---
DATE: 02/12/2017 Ms. Caceres seen for postop care status post hip pinning. At the present time her incision is clean and dry. There is no active bleeding. There is no signs of complication. I stressed the importance of touchdown weightbearing. She can progress to rehab when stable. Will see her back in roughly a month's time for follow up x-rays. cc: Jason Nova MD
[2017-02-12] MEDS: COLACE PO SCH (21:36)
[2017-02-13] MEDS: TYLENOL PO SCH ×3 (00:22→17:27)
[2017-02-13 05:29] LABS: MANUAL DIFF NEEDED? NO
[2017-02-13] MEDS: PRILOSEC PO SCH ×2 (05:35→07:48)
[2017-02-13 05:36] LABS: BASO% 0.6 % (0.0-0.8); EOS# 0.28 X1000 (0.0-0.7); EOS% 2.9 % (0.0-10.0); HEMATOCRIT 36.3 % (37.0-47.0); HEMOGLOBIN 12.1 g/dL (12.0-16.0); IMM GRAN# 0.05 X1000 (0.0-0.04); IMM GRAN% 0.5 % (0.0-0.5); LYMPH# 1.91 X1000 (1.2-3.4); LYMPH% 19.6 % (20.5-51.1); MCH 29.8 PG (27-31); MCHC 33.3 g/dL (33-37); MCV 89.4 FL (81-99); MONO# 1.28 X1000 (0.11-0.59); MONO% 13.1 % (1.7-9.3); MPV 11.4 FL (7.4-10.4); NEUT% 63.3 % (42.2-75.2); PLT 200 X1000 (130-400); RBC 4.06 XMIL (4.2-5.4)
[2017-02-13] MEDS: APRESOLINE PO SCH ×2 (05:36→15:06)
[2017-02-13] MEDS: LOVENOX SUBQ SCH ×2 (05:36→07:48)
[2017-02-13 05:56] LABS: AGAP 12; BUN 19 mg/dL (8-22); CALCIUM 9.1 mg/dL (8.8-10.2); CHLORIDE 105 mmol/L (98-107); COSMO 286; POTASSIUM 3.6 mmol/L (3.5-5.1); SODIUM 142 mmol/L (136-145); TCO2 25 mmol/L (25-35)
[2017-02-13] MEDS: NS 1,000 ML IV SCH (07:43)
[2017-02-13] MEDS: ARICEPT PO SCH (08:35)
[2017-02-13] MEDS: VITAMIN B-12 PO SCH (08:35)
[2017-02-13] MEDS: FERROUS SULFATE PO SCH (08:36)
[2017-02-13] MEDS: NORVASC PO SCH (08:36)
[2017-02-13] MEDS: CATAPRES PO SCH ×2 (08:36→15:06)
[2017-02-13] MEDS: PERIDEX MT SCH (08:36)
[2017-02-13] MEDS: COREG PO SCH (08:36)
[2017-02-13] MEDS: COZAAR PO SCH (08:36)
[2017-02-13] MEDS: VITAMIN D PO SCH (08:36)
--- NOTE | 2017-02-13 11:46 | DISCHARGE SUMMARY ---
ADMISSION DATE: 02/07/2017 DISCHARGE DATE: 02/13/2017 DISCHARGE DIAGNOSES: 1. Right hip fracture, status post open reduction and internal fixation. 2. Uncontrolled hypertension, much better now. 3. Hyperkalemia, resolved. 4. Dementia under treatment. PROCEDURES: 1. Pelvis CT showed some fracture of the right femoral neck. 2. Head and cervical spine CT showed no injury to the head or cervical spine. CONSULTATIONS: Dr. Nova from orthopedics. He perform a closed reduction, percutaneous pinning of the right femoral neck fracture. HOSPITAL COURSE: This is a 76-year-old female with past medical history of hypertension, coronary artery disease, who was brought to the emergency department because apparently she tripped over at home, landed on her right hip, and upon ER evaluation by CT of the pelvis we confirmed right femoral fracture, so we consulted orthopedics, Dr. Nova, who performed procedures as above mentioned. After that, patient was doing fine. Initially she was recommended nonbearing on that extremity. After a few days, the patient will start working with physical therapy. Patient was doing fine. It is also important to remark that the blood pressure was difficult to control. We had to have some modifications to his current therapy. By now, the medication that is usually used to control blood pressure is working fine. Regarding coronary artery disease, she never complained of any chest pain. At this point, patient is going to be discharged to rehab facility in stable condition. DISCHARGE PHYSICAL EXAMINATION: Vitals: Temperature 98.4 degrees, heart rate 90, respiratory rate 14, blood pressure 140/60, O2 saturation 94% on 2 L nasal cannula. General: This is a chronically ill-looking and frail, 76-year-old female, lying in bed in no acute distress. HEENT: Head is normocephalic, atraumatic. Anicteric sclerae and pale conjunctivae. Mucous membranes are moist. Neck: Supple. No JVD noted. No carotid bruits. No lymphadenopathy. No thyromegaly. Cardiovascular exam: S1, S2 heard. No murmurs, gallops or rubs. Regular rate and rhythm. Respiratory exam: Clear bilaterally to auscultation. No work of breathing or using accessory muscles. Abdomen: Soft, nontender to palpation. Bowel sounds present. No organomegaly. Extremities: No clubbing or cyanosis noted. Peripheral pulses present in both legs. Neurological exam: Patient is hard of hearing. Awake, moves 4 extremities. DISCHARGE DISPOSITION: The patient is going to rehab facility. LIST OF MEDICATIONS: 1. Coreg 12.5 mg 1 tablet p.o. b.i.d. 2. Colace 200 mg p.o. daily at bedtime. 3. Hydralazine 50 mg 1 tablet p.o. 2 times per day. 4. Oxycodone IR 5 mg 1 tablet p.o. every 3 hours as needed for pain. 5. Amlodipine 5 mg 1 tablet p.o. b.i.d. 6. Clonidine 0.2 mg p.o. 3 times per day. 7. Omeprazole 20 mg 1 tablet p.o. daily. 8. Vitamin D 1000 units 1 tablet p.o. daily. 9. Donepezil 10 mg 1 tablet p.o. daily. 10. Nitroglycerin 0.4 mg sublingual as needed for chest pain. 11. Vitamin B 12 1000 mcg oral daily. 12. Losartan 100 mg 1 tablet p.o. daily. 13. Aspirin 81 mg 1 tablet p.o. daily. FOLLOWUP: Follow up with Dr. Nova in 4 weeks. cc: Robb Melgoza MD
--- NOTE | 2017-02-13 13:01 | Diag Imaging Result Doc PS360 ---
EXAM: CHEST-PORTABLE INDICATION: rehab placement TECHNIQUE: One view COMPARISON: None. FINDINGS: The lungs are grossly clear. There is no discrete pleural fluid collection or pneumothorax. The cardiomediastinal silhouette and central vasculature are grossly unremarkable. IMPRESSION: No evidence of acute pathology by plain radiograph. Electronically signed by Jason Carlson 02/13/2017 12:59 PM
[2017-02-13 15:05] VITALS: BP 165/51
== END 2017-02-13 18:16 ==
LOC: ED 20:24 → SUATTDRO 02-07 00:48 → 4N 02-07 00:48
PROVIDERS: ATTEND Internal Medicine

== ENCOUNTER 2017-03-19 06:41 | Inpatient (IN) ==
[2017-03-19] MEDS ORDERED: NITROGLYCERIN SL PRN (07:21)
[2017-03-19] MEDS ORDERED: TYLENOL LIQUID PO PRN (07:21)
[2017-03-19] MEDS ORDERED: MORPHINE IV PRN (07:22)
[2017-03-19] MEDS ORDERED: MILK OF MAGNESIA PO SCH (07:30)
[2017-03-19 07:38] LABS: HEMATOCRIT 36.9 % (37.0-47.0); HEMOGLOBIN 11.9 g/dL (12.0-16.0); MCH 29.5 PG (27-31); MCHC 32.2 g/dL (33-37); MCV 91.3 FL (81-99); MPV 11.4 FL (7.4-10.4); RBC 4.04 XMIL (4.2-5.4)
[2017-03-19] MEDS ORDERED: PEPCID ONE (08:07)
[2017-03-19] MEDS ORDERED: REGLAN ONE (08:07)
[2017-03-19] MEDS ORDERED: LYRICA ONE (08:07)
[2017-03-19] MEDS ORDERED: COLACE ONE (08:07)
[2017-03-19] MEDS ORDERED: CELEBREX ONE (08:08)
[2017-03-19] MEDS ORDERED: KEFZOL 1 GM/D5W 1 GM/50 ML IVPB ONE (08:08)
[2017-03-19] MEDS ORDERED: LR 1,000 ML ONE (08:08)
[2017-03-19] MEDS ORDERED: FENTANYL ONE (08:25)
[2017-03-19] MEDS ORDERED: VERSED ONE (08:26)
[2017-03-19] MEDS ORDERED: EPHEDRINE ONE (08:27)
[2017-03-19] MEDS ORDERED: COREG PO ONE (08:30)
[2017-03-19] MEDS ORDERED: NORVASC PO ONE (08:30)
[2017-03-19] MEDS ORDERED: DURAMORPH ONE (08:51)
[2017-03-19] MEDS ORDERED: TORADOL ONE (08:51)
[2017-03-19] MEDS ORDERED: SODIUM CHLORIDE 0.9% ONE (08:52)
[2017-03-19] MEDS ORDERED: EXPAREL 1.3% ONE (08:52)
[2017-03-19] MEDS ORDERED: SENSORCAINE 0.25%/EPI 1:200,000 ONE (08:52)
[2017-03-19] MEDS ORDERED: CYKLOKAPRON 1,000 MG/NS 1,000 MG/100 ML IVPB ONE (08:52)
[2017-03-19] MEDS ORDERED: NEOSPORIN G.U. IRRIGANT ONE ×2 (08:52→11:02)
[2017-03-19] MEDS ORDERED: NS 0 ML ONE (09:06)
[2017-03-19] MEDS ORDERED: APRESOLINE ONE (10:16)
--- NOTE | 2017-03-19 10:30 | EKG Report ---
Test Performed on : 03/19/2017 07:10:43 AM Test Reason : PREOP Blood Pressure : / mmHG Vent. Rate : 075 BPM Atrial Rate : 075 BPM P-R Int : 160 ms QRS Dur : 100 ms QT Int : 382 ms P-R-T Axes : 000 -11 080 degrees QTc Int : 426 ms Normal sinus rhythm. Left ventricular hypertrophy with repolarization abnormality Cannot rule out Septal infarct , age undetermined Abnormal ECG No previous ECGs available Confirmed by Gerri Rasmussen MD ([id number]) on 03/19/2017 1:40:39 PM
[2017-03-19 10:31] LABS: URINE MICRO REVIEW NEEDED? NO; URINE SOURCE CATH
[2017-03-19 10:40] LABS: BILIRUBIN URINE NEGATIVE (NEGATIVE); BLOOD URINE NEGATIVE (NEGATIVE); COLOR YELLOW; GLUCOSE URINE NEGATIVE (NEGATIVE); LEUKOCYTES URINE NEGATIVE (NEGATIVE); NITRITE URINE NEGATIVE (NEGATIVE); PH URINE 7.5; PROTEIN URINE NEGATIVE (NEGATIVE); SP GRAVITY URINE 1.007; TURBIDITY URINE CLEAR (CLEAR); UROBILINOGEN URINE NORMAL (NORMAL)
[2017-03-19 10:41] LABS: UR EPITHELIAL CELLS <10 /HPF (<10); URINE BACTERIA 4+ /HPF; URINE RBC <10 /HPF (<10); URINE WBC <10 /HPF (<10)
[2017-03-19] MEDS ORDERED: NS 1,000 ML ONE (11:31)
--- NOTE | 2017-03-19 11:51 | Diag Imaging Result Doc PS360 ---
HIP 1 VIEW RIGHT - 03/19/2017 INDICATION: jasmyne TECHNIQUE: COMPARISON: 02/22/2017 FINDINGS: There has been placement of a right femoral head prosthesis. Alignment is anatomic. No hardware fracture or loosening. IMPRESSION: No evidence of complication. Electronically signed by Ernesto Cisneros 03/19/2017 11:48 AM
[2017-03-19] MEDS ORDERED: OFIRMEV 1000 MG/ISOTONIC SOLN 1,000 MG/100 ML BOTTLE ONE (11:57)
[2017-03-19] MEDS ORDERED: ZOFRAN IV PRN (13:00)
--- NOTE | 2017-03-19 15:33 | PROGRESS NOTE ---
DATE: 03/19/2017 SUBJECTIVE DATA: The patient is lying in bed. She is in no acute distress. She is comfortable. She denies any pain at present. She is alert and oriented. OBJECTIVE DATA: Right lower extremity exam: The hip and leg are in neutral position. There is no tenderness to palpation. The dressing to the hip is clean, dry and intact. The drain does have bloody drainage but it is draining well. She can wiggle the toes. She has good sensation to the toes. She has a good pedal pulse. She has good color, good capillary refill. IMPRESSION: Status post bipolar hip implant to the right hip with hardware removal. ASSESSMENT: Ms. Caceres is doing very well. She is not complaining of any pain at the present. We will consult hospitalist for medical management. We will resume appropriate home medications. We will put her on Xarelto for DVT prophylaxis. We will see her again in the morning. Dictated by PRASHANT Raymond for Jason Nova MD cc: PRASHANT Raymond MD Omar J. Sosa-Chirinos, MD
--- NOTE | 2017-03-19 15:43 | OPERATIVE NOTE ---
PROCEDURE DATE: 03/19/2017 PREOPERATIVE DIAGNOSIS: Nonunion right femoral neck. POSTOPERATIVE DIAGNOSIS: Nonunion right femoral neck. PROCEDURE: 1. Removal of hardware right hip. 2. Bipolar right hip replacement right hip. SURGEON: Joana Nova MD. MULTI SLIDE MACHINE TENDER: Ethel Carrington. ANESTHESIA: Spinal. COMPLICATION: None. PROCEDURE IN DETAIL: This 76-year-old female with nonunion of right femoral neck fracture presents for surgical revision and bipolar hemiarthroplasty. Risks, benefits, and no guarantees were discussed with the patient who is willing to proceed. The patient was taken to the operating room and satisfactory spinal anesthesia was obtained. She was placed in lateral position with the right hip upward. All bony prominences were padded. The right hip was prepped and draped in usual sterile fashion. A time-out was taken to confirm operative site, procedure, and patient. Posterior approach to the right hip was undertaken through a curved incision centered over the greater trochanter. Dissection was carried down through the deep fascia. Three percutaneous pins were then removed from the lateral aspect of the femur. A capsulotomy incision was made to expose the nonunion site. An osteotomy was made below the nonunion site roughly at 45 degree angle at about 8 mm above the lesser trochanter. The femoral head was removed and sized to a size 49 femoral head implant. Broaching with a Package Concierge[employer] Corail broach system was undertaken up to a size 13 stem. This had good axial and rotational stability. Standard neck geometry with a 1.5 neck length revealed good range of motion and stability with the trial implant. The trial implant was removed and a standard neck size 13 Corail stem impacted in the proximal femur and roughly 10 degrees of anteversion with secure axial and rotational stability. A bipolar head with a 49 outer diameter and 28 inner diameter with a 1.5 neck taper was impacted onto the Elizondo taper and the hip reduced. Final range of motion was full extension with the knee at 90 degrees, flexion to 90 degrees with internal rotation up to a 70-80 degrees without dislocation. The wound was copiously irrigated with irrigant. It was then closed in layers repairing the posterior capsule and piriformis with 0 Vicryl, the deep fascia with interrupted #1 Vicryl. The subcutaneous with 2-0 Vicryl, and the skin with skin zahira. Sterile dressings completed the closure and she was recovered from anesthesia and transferred to the recovery room in stable condition. No intraoperative complications were noted. Instrument count and sponge count was correct at the time of closure. cc: MD Romario Mariano MD
[2017-03-19] MEDS: APRESOLINE PO SCH ×3 (15:57→20:07)
[2017-03-19] MEDS: CATAPRES PO SCH ×3 (15:58→20:07)
[2017-03-19] MEDS: ARICEPT PO SCH (15:59)
[2017-03-19] MEDS: COREG PO SCH ×2 (16:00→20:06)
[2017-03-19] MEDS: NORVASC PO SCH ×2 (16:01→20:07)
[2017-03-19] MEDS: COZAAR PO SCH (16:01)
[2017-03-19] MEDS: VITAMIN D PO SCH (16:02)
[2017-03-19] MEDS: VITAMIN B-12 PO SCH (16:02)
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
[2017-03-19] MEDS: KEFZOL 1 GM/D5W 1 GM/50 ML IVPB IV SCH (17:44)
[2017-03-19] MEDS: OFIRMEV 1000 MG/ISOTONIC SOLN 1,000 MG/100 ML BOTTLE IV SCH (18:23)
[2017-03-19] MEDS ORDERED: PNEUMOVAX 23 IM ONE (18:30)
[2017-03-19] MEDS: COLACE PO SCH (20:08)
[2017-03-19] MEDS: PERIDEX MT SCH (22:27)
[2017-03-20] MEDS: OFIRMEV 1000 MG/ISOTONIC SOLN 1,000 MG/100 ML BOTTLE IV SCH ×2 (00:05→05:09)
[2017-03-20] MEDS: NS 1,000 ML IV SCH ×3 (00:05→09:09)
[2017-03-20] MEDS: KEFZOL 1 GM/D5W 1 GM/50 ML IVPB IV SCH (01:21)
[2017-03-20] MEDS: XARELTO PO SCH (05:09)
[2017-03-20] MEDS: PRILOSEC PO SCH ×2 (05:09→06:33)
--- NOTE | 2017-03-20 05:19 | EKG Report ---
Test Performed on : 03/20/2017 03:55:25 AM Test Reason : change in tele Blood Pressure : / mmHG Vent. Rate : 073 BPM Atrial Rate : 073 BPM P-R Int : 160 ms QRS Dur : 104 ms QT Int : 408 ms P-R-T Axes : 031 032 031 degrees QTc Int : 449 ms Normal sinus rhythm. Left ventricular hypertrophy with repolarization abnormality Abnormal ECG When compared with ECG of 20-MAR-2017 03:54, (Unconfirmed) Previous ECG has undetermined rhythm, needs review Confirmed by Gerri Rasmussen MD ([id number]) on 03/20/2017 10:35:43 AM
[2017-03-20 05:41] LABS: EOS# 0.15 X1000 (0.0-0.7); EOS% 2.4 % (0.0-10.0); HEMATOCRIT 35.4 % (37.0-47.0); HEMOGLOBIN 11.4 g/dL (12.0-16.0); IMM GRAN# 0.03 X1000 (0.0-0.04); IMM GRAN% 0.5 % (0.0-0.5); LYMPH# 1.38 X1000 (1.2-3.4); LYMPH% 22.2 % (20.5-51.1); MANUAL DIFF NEEDED? YES; MCH 29.5 PG (27-31); MCHC 32.2 g/dL (33-37); MCV 91.7 FL (81-99); MONO# 0.88 X1000 (0.11-0.59); MONO% 14.1 % (1.7-9.3); MPV 11.2 FL (7.4-10.4); NEUT% 59.8 % (42.2-75.2); PLT 176 X1000 (130-400); RBC 3.86 XMIL (4.2-5.4)
[2017-03-20 05:51] LABS: AGAP 9; BUN 15 mg/dL (8-22); CALCIUM 8.5 mg/dL (8.8-10.2); CHLORIDE 105 mmol/L (98-107); COSMO 286; SODIUM 143 mmol/L (136-145); TCO2 29 mmol/L (25-35)
[2017-03-20 08:18] LABS: BANDS 2 % (0-1); EOS 2 % (1-10); LYMPHS 16 % (21-51); MONO 14 % (1-9)
[2017-03-20] MEDS: ARICEPT PO SCH (09:07)
[2017-03-20] MEDS: NORVASC PO SCH ×2 (09:07→20:50)
[2017-03-20] MEDS: VITAMIN B-12 PO SCH (09:07)
[2017-03-20] MEDS: VITAMIN D PO SCH (09:07)
[2017-03-20] MEDS: APRESOLINE PO SCH ×3 (09:07→20:51)
[2017-03-20] MEDS: CATAPRES PO SCH ×2 (09:08→20:50)
[2017-03-20] MEDS: COREG PO SCH ×2 (09:08→20:51)
[2017-03-20] MEDS: COZAAR PO SCH (09:08)
[2017-03-20] MEDS: PERIDEX MT SCH ×2 (09:08→20:51)
[2017-03-20] MEDS: OXY IR PO PRN ×2 (14:13→23:33)
--- NOTE | 2017-03-20 15:23 | PROGRESS NOTE ---
DATE: 03/20/2017 SUBJECTIVE: This patient states that she is feeling good, no acute events overnight. OBJECTIVE: Vital Signs: Temperature 98 degrees, pulse 68, respiratory rate 16, blood pressure 180/48, oxygen saturation 97% on 3 L of nasal cannula. HEENT: Head normocephalic. No trauma. PERRLA. Neck: Supple. No JVD. No masses. Central trachea. Cardiovascular: Regular rhythm and rate. No murmurs. Chest: Clear to auscultation. No wheezing. No rales. Abdomen: Soft, nontender, nondistended. No hepatosplenomegaly. Extremities: Negative for edema. Bilateral pedal pulses are palpable. She has a drain extending from her right hip with some bloody drainage. Neurological: No focal deficits noted. LABORATORY: WBC 6.2, hemoglobin 11.4, hematocrit 35.4, platelets 176,000. Sodium 143, potassium 4, chloride 105, bicarbonate 29, BUN 15, creatinine 0.6, glucose 95, calcium 8.5. ASSESSMENT AND PLAN: 1. Hardware removal of right hip and bipolar hip replacement to the right hip performed by Dr. Nova. We will continue to follow his recommendations. 2. Hypertension. Continue with home medication. Probably I will adjust some of the medications because of her hypertension. 3. High blood pressure. 4. History of coronary artery disease, status post stenting. No chest pain at this moment. We will monitor. 5. New diagnosis of Alzheimer's dementia as per family. Continue with home medications. cc: Romario Dela Cruz MD
[2017-03-20] MEDS: COLACE PO SCH (20:50)
[2017-03-20] MEDS ORDERED: MILK OF MAGNESIA PO PRN (21:00)
[2017-03-21 05:32] LABS: MANUAL DIFF NEEDED? NO
[2017-03-21] MEDS: PRILOSEC PO SCH ×2 (05:34→06:28)
[2017-03-21] MEDS: XARELTO PO SCH (05:34)
[2017-03-21 05:38] LABS: BASO% 0.2 % (0.0-0.8); HEMATOCRIT 35.3 % (37.0-47.0); HEMOGLOBIN 11.3 g/dL (12.0-16.0); IMM GRAN# 0.05 X1000 (0.0-0.04); IMM GRAN% 0.5 % (0.0-0.5); LYMPH# 2.19 X1000 (1.2-3.4); LYMPH% 21.2 % (20.5-51.1); MCH 28.9 PG (27-31); MCV 90.3 FL (81-99); MONO# 1.63 X1000 (0.11-0.59); MONO% 15.8 % (1.7-9.3); MPV 11.5 FL (7.4-10.4); NEUT% 61.3 % (42.2-75.2); PLT 198 X1000 (130-400); RBC 3.91 XMIL (4.2-5.4)
[2017-03-21 06:03] LABS: AGAP 9; BUN 17 mg/dL (8-22); CALCIUM 8.5 mg/dL (8.8-10.2); CHLORIDE 98 mmol/L (98-107); COSMO 275; POTASSIUM 4.1 mmol/L (3.5-5.1); SODIUM 136 mmol/L (136-145); TCO2 29 mmol/L (25-35)
[2017-03-21] MEDS: ARICEPT PO SCH (08:48)
[2017-03-21] MEDS: COZAAR PO SCH (08:48)
[2017-03-21] MEDS: VITAMIN B-12 PO SCH (08:49)
[2017-03-21] MEDS: PERIDEX MT SCH (08:49)
[2017-03-21] MEDS: NORVASC PO SCH (08:49)
[2017-03-21] MEDS: APRESOLINE PO SCH ×2 (08:49→15:08)
[2017-03-21] MEDS: COREG PO SCH (08:49)
[2017-03-21] MEDS: VITAMIN D PO SCH (08:49)
--- NOTE | 2017-03-21 11:06 | DISCHARGE SUMMARY ---
ADMISSION DATE: 03/19/2017 DISCHARGE DATE: 03/21/2017 ADMITTING DIAGNOSIS: Nonunion right femoral neck. DISCHARGE DIAGNOSIS: Nonunion right femoral neck, status post bipolar hemiarthroplasty. CONSULT: Hospitalist Service. PROCEDURES: 1. Removal of hardware right hip. 2. Bipolar right hip replacement. Bipolar hemiarthroplasty. HOSPITAL COURSE: This is a 76-year-old female with nonunion of right femoral neck fracture who presents for surgical revision and bipolar hemiarthroplasty on 03/19/[address] Nova. After the procedure, she was transferred to the recovery room. After she was awake and alert and well recovered she transferred to [address] [place] [address]. She has done well postoperatively and, at this time, is ready for discharge. DISCHARGE VITAL SIGNS: Temp 98.4 degrees, heart rate 91, respirations are 18, blood pressure 133/85. She is 93% on room air. DISPOSITION: Ms. Caceres is being discharged today to [facility] in [place]. She will continue with rehab there. She has been up with physical therapy in the hospital. She will continue physical therapy. We have placed her on DVT prophylaxis, Xarelto, to cover her while she is recovering. We will send her home with pain medication or send her to rehab with pain medication, and she will follow up with in the office. I have instructed her and her family that she would have any signs and symptoms of infection or any other issues she should call the office. Thank you. Dictated by PRASHANT Raymond for Jason Nova MD cc: PRASHANT Raymond MD Omar J. Sosa-Chirinos, MD
[2017-03-21] MEDS: CATAPRES PO SCH ×2 (12:35→15:08)
[2017-03-21] MEDS: NS 1,000 ML IV SCH (12:36)
[2017-03-21 15:09] VITALS: BP 152/57
== END 2017-03-21 15:17 ==
LOC: SURHOLD 06:41 → 4N 11:03
PROVIDERS: ADMIT Internal Medicine; ATTEND Orthopaedic Surgery Adult Reconstructive Orthopaedic Surgery